=== PATIENT | female | born 1990 | race Caucasian/White ===

== ENCOUNTER 2016-12-04 18:16 | Emergency (ER) | payer OTHER ==
[~2016-12-04] VITALS: Ht 154.9 cm; Wt 63.5 kg
[2016-12-04 18:51] VITALS: Ht 154.9 cm; Wt 63.5 kg
[2016-12-04] MEDS ORDERED: HYDROCODONE/APAP (5/325) TAB PO ONE (22:30)
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
--- NOTE | 2016-12-04 22:56 | RADRPT ---
PROCEDURE: XR Cervical Spine. CLINICAL INDICATION: Cervical spine pain. TECHNIQUE: AP, lateral and odontoid views of the cervical spine were performed. The images were re viewed on a PACS workstation. COMPARISON: None. FINDINGS: There is diffuse straightening of the cervical spine without reversal of normal cervical lordosis. There is trace anterolisthesis of C3 on C4 and C4 on C5. The vertebral body height and osseous cloth examiner machine alization are normal. There is no evidence of fracture or dislocation. There is no significant facet arthropathy. The uncovertebral joints are unremarkable. The intervertebral disc spaces are well sabi ntained. There are no abnormal calcifications. The prevertebral soft tissues are normal. No radiopaq ue foreign bodies are identified. IMPRESSION: 1. Diffuse straightening of the cervical spine which may be related to paraspinal muscle spasm vers us positioning. 2. Otherwise, normal radiographs of the cervical spine. No significant degenerative disc disease o r evidence of fracture. RPTAT: HGAS .Kvng Portillo MD, MD Date Time Electronically viewed and signed by .Kvng Portillo MD, on 12/04/2016 22:55 .S/
--- NOTE | 2016-12-04 22:56 | RADRPT ---
PROCEDURE: XR shoulder. CLINICAL INDICATION: Left shoulder pain. TECHNIQUE: AP internal and external rotation and scapular Y views of the left shoulder were perfor med. COMPARISON: None. FINDINGS: The clavicle, scapula and proximal humerus are normal in appearance. The acromioclavicular joint is normal in appearance. There is no significant lateral downsloping of the acromion. The glenohumer al joint space is maintained. There is no evidence of fracture or dislocation. The left hemithorax is normal in appearance. The soft tissues are unremarkable. IMPRESSION: 1. Normal radiographs of the left shoulder. No evidence of fracture or dislocation. RPTAT: HGAS .Kvng Portillo MD, MD Date Time Electronically viewed and signed by .Kvng Portillo MD, on 12/04/2016 22:56 .S/
--- NOTE | 2016-12-04 22:57 | RADRPT ---
PROCEDURE: XR Wrist. CLINICAL INDICATION: Left wrist pain. TECHNIQUE: AP, lateral and oblique views of the left wrist were performed. Images were reviewed on a PACS workstation. COMPARISON: No prior studies are available for comparison. FINDINGS: The distal radius and ulna are normal in appearance. The radiocarpal joint is maintained. There is no evidence of fracture, dislocation, or subluxation is seen. The scapholunate interval is normal. The carpal bones and intercarpal joints are normal in appearance. The alignment of the carpal bones is within normal limits. The marrow density is normal. There is no significant soft tissue swelli ng. IMPRESSION: 1. Normal radiographs of the left wrist. No evidence of fracture. RPTAT: HGAS .Kvng Portillo MD, Date Time Electronically viewed and signed by .Kvng Portillo MD, on 12/04/2016 22:57 .S/
--- NOTE | 2016-12-04 22:58 | RADRPT ---
PROCEDURE: XR Elbow. CLINICAL INDICATION: Left elbow pain. TECHNIQUE: AP, lateral and oblique views of the left elbow performed. COMPARISON: None. FINDINGS: There is normal alignment of the elbow joint. The distal humerus and proximal radius/ulna are anirudh l in appearance. There is no osteopenia. No fracture or osseous lesion is identified. There are nor mal joints without evidence of arthritis or effusion. The fat pad is normal in appearance. The soft tissues are unremarkable. IMPRESSION: 1. Normal radiographs of the left elbow. No evidence of fracture or joint effusion. RPTAT: HGAS .Kvng Portillo MD, Date Time Electronically viewed and signed by .Kvng Portillo MD, on 12/04/2016 22:57 .S/
[2016-12-04] MEDS ORDERED: CYCL-319 PO (23:16)
[2016-12-04] MEDS ORDERED: ACET500C5 PO (23:16)
[2016-12-04] MEDS ORDERED: TRAM50TA2 PO (23:16)
[2016-12-05 00:09] VITALS: BP 126/81; PULSE 78; RESP 18; TEMP 98.5
== END 2016-12-05 00:10 | disposition home or self-care (01) ==
LOC: FTE 18:16
DX: M54.2 Cervicalgia (principal); M79.602 Pain in left arm
CPT/HCPCS: 72040; 73030; 73080; 73110; Z7502; Z7610